=== PATIENT | male | born 1950 | race Caucasian/White ===

== ENCOUNTER 2018-01-17 11:09 | Emergency (ER) | payer MEDICARE, OTHER, BC | END 2018-01-17 14:10 | disposition home or self-care (01) | LOC: E/R 11:09 | DX: L03.116 Cellulitis of left lower limb (principal); I10 Essential (primary) hypertension; E11.9 Type 2 diabetes mellitus without complications; Z79.82 Long term (current) use of aspirin; Z79.84 Long term (current) use of oral hypoglycemic drugs | CPT/HCPCS: 93971; 99284-25 ==